=== PATIENT | male | born 1990 | race Caucasian/White ===

== ENCOUNTER 2016-08-18 07:16 | Emergency (ER) | payer SELFPAY ==
[~2016-08-18] VITALS: Ht 167.6 cm; Wt 70.0 kg
[2016-08-18 07:18] VITALS: BP 141/106; PULSE 103; RESP 16; TEMP 98.7; O2SAT 99
[2016-08-18] MEDS ORDERED: SODIUM CHLOR 0.9% 1000 ML INJ 1,000 ML IV SCH (07:29)
[2016-08-18] MEDS ORDERED: FAMOTIDINE 20 MG/2 ML VIAL IV PUSH ONE (07:30)
[2016-08-18] MEDS ORDERED: MORPHINE SULFATE 4 MG/ML INJ IV PUSH ONE ×2 (07:30→08:30)
[2016-08-18] MEDS ORDERED: SODIUM CHLORIDE 0.9% FLUSH 10 ML FLUSH IV FLUSH PRN (07:30)
[2016-08-18] MEDS ORDERED: ONDANSETRON HCL 4 MG/2 ML VIAL IVP ONE (07:30)
--- NOTE | 2016-08-18 07:40 | PD ---
HPI Chief Complaint: Abdominal Pain Time Seen by Provider: 07:29 Travel History International Travel<30 days: No Contact w/Intl Traveler<30days: No Traveled to known affect area: No History of Present Illness HPI The patient is a 26-year-old male who presents emergency department for abdominal pain. The patient is a 39 history of epigastric abdominal pain that radiates to the flanks bilaterally and is associated with nausea, vomiting , pain with eating. The patient also notes a few episodes of loose, watery, diarrhea, however, notes decreased oral intake of last several days. The patient does have a remote history of colitis 2 years ago as well as a history of elevated liver enzymes as a child. He denies any known history pancreatitis , cholelithiasis, biliary colic. The patient's last drink of alcohol was 6 days ago, he states he only has 1 or 2 beers when he drinks, denies any binge drinking. He does complain of subjective fevers, chills, and sweats. Symptoms are moderate without any alleviating or exacerbating factors. He denies any history of previous abdominal surgeries. He denies any associated dysuria, frequency, urgency, or hematuria. PFS Past Medical History Narrative Medical Elevated liver enzymes as a child, colitis Gastrointestinal Disorders: Yes (HX COLITIS) Tetanus Vaccination: Unknown Influenza Vaccination: No Past Surgical History Surgical History: No Previous Surgery Social History Alcohol Use: Yes (OCCAS) Tobacco Use: Yes (1/2 PPD) Substance Use: Yes ([facility]) Allergies-Medications (Allergen,Severity, Reaction): Coded Allergies: Benadryl (Verified Allergy, Severe, Psychosis, 08/18/16) Reported Meds & Prescriptions Reported Meds & Active Scripts Active Protonix (Pantoprazole Sodium) 40 Mg Tab 40 Mg PO DAILY Review of Systems Except as stated in HPI: all other systems reviewed are Neg General / Constitutional: Positive: Fever (subjective), Chills HENT: No: Headaches Respiratory: No: Shortness of Breath Gastrointestinal: Positive: Nausea, Vomiting, Diarrhea, Abdominal Pain Genitourinary: No: Urgency, Frequency, Dysuria, Hematuria Musculoskeletal: No: Myalgias Skin: No Rash Physical Exam Narrative GENERAL: Awake, alert, 26-year-old male who appears his stated age and appears in mild discomfort. SKIN: Focused skin assessment warm/dry. HEAD: Atraumatic. Normocephalic. EYES: Pupils equal and round. No scleral icterus. No injection or drainage. ENT: No nasal bleeding or discharge. Mucous membranes pink and moist. NECK: Trachea midline. No JVD. CARDIOVASCULAR: Regular, tachycardic with a heart rate of 100. RESPIRATORY: No accessory muscle use. Clear to auscultation. Breath sounds equal bilaterally. GASTROINTESTINAL: Abdomen soft, mild tenderness in epigastrium. No rebound tenderness. MUSCULOSKELETAL: No obvious deformities. No clubbing. No cyanosis. No edema. NEUROLOGICAL: Awake and alert. No obvious cranial nerve deficits. Motor grossly within normal limits. Normal speech. PSYCHIATRIC: Appropriate mood and affect; insight and judgment normal. Data Data Last Documented VS Vital Signs Date Time Temp Pulse Resp B/P Pulse Ox O2 Delivery O2 Flow Rate FiO2 08/18/16 08:43 82 16 146/85 99 Room Air 08/18/16 07:18 98.7 Orders Complete Blood Count With Diff (08/18/16 07:29) Comprehensive Metabolic Panel (08/18/16 07:29) Lipase (08/18/16 07:29) Urinalysis - C+S If Indicated (08/18/16 07:29) Ct Abd/Pel W Iv Contrast(Rout) (08/18/16 07:29) Iv Access Insert/Monitor (08/18/16 07:29) Ecg Monitoring (08/18/16 07:29) Oximetry (08/18/16 07:29) Ondansetron Inj (Zofran Inj) (08/18/16 07:30) Sodium Chlor 0.9% 1000 Ml Inj (Ns 1000 M (08/18/16 07:29) Sodium Chloride 0.9% Flush (Ns Flush) (08/18/16 07:30) Famotidine Inj (Pepcid Inj) (08/18/16 07:30) Morphine Inj (Morphine Inj) (08/18/16 08:00) Iohexol 350 Inj (Omnipaque 350 Inj) (08/18/16 07:59) Morphine Inj (Morphine Inj) (08/18/16 08:30) Al-Mag Hy-Si 40-40-4 Mg/Ml Liq (Mag-Al P (08/18/16 08:30) Lidocaine 2% Viscous (Xylocaine 2% Visco (08/18/16 08:30) Morphine Inj (Morphine Inj) (08/18/16 08:30) Labs Laboratory Tests Test 08/18/16 07:40 White Blood Count 11.1 TH/MM3 Red Blood Count 5.42 MIL/MM3 Hemoglobin 16.2 GM/DL Hematocrit 49.4 % Mean Corpuscular Volume 91.3 FL Mean Corpuscular Hemoglobin 30.0 PG Mean Corpuscular Hemoglobin 32.8 % Concent Red Cell Distribution Width 12.8 % Platelet Count 242 TH/MM3 Mean Platelet Volume 7.3 FL Neutrophils (%) (Auto) 71.9 % Lymphocytes (%) (Auto) 17.7 % Monocytes (%) (Auto) 8.5 % Eosinophils (%) (Auto) 1.4 % Basophils (%) (Auto) 0.5 % Neutrophils # (Auto) 7.9 TH/MM3 Lymphocytes # (Auto) 2.0 TH/MM3 Monocytes # (Auto) 0.9 TH/MM3 Eosinophils # (Auto) 0.2 TH/MM3 Basophils # (Auto) 0.1 TH/MM3 CBC Comment DIFF FINAL Differential Comment Urine Collection Type CLEAN CATCH Urine Color YELLOW Urine Turbidity CLEAR Urine pH 6.0 Urine Specific [place] 1.029 Urine Protein TRACE mg/dL Urine Glucose (UA) NEG mg/dL Urine Ketones 15 mg/dL Urine Occult Blood TRACE Urine Nitrite NEG Urine Bilirubin NEG Urine Leukocyte Esterase NEG Urine RBC 0-3 /hpf Urine WBC 0-2 /hpf Urine Squamous Epithelial 0-5 /hpf Cells Urine Mucus FEW /lpf Microscopic Urinalysis Comment CULT NOT INDICATED Urine Collection Time 07:40 Sodium Level 142 MEQ/L Potassium Level 4.2 MEQ/L Chloride Level 109 MEQ/L Carbon Dioxide Level 23.0 MEQ/L Anion Gap 10 MEQ/L Blood Urea Nitrogen 11 MG/DL Creatinine 0.99 MG/DL Estimat Glomerular Filtration 91 ML/MIN Rate Random Glucose 90 MG/DL Calcium Level 9.2 MG/DL Total Bilirubin 1.0 MG/DL Aspartate Amino Transf 55 U/L (AST/SGOT) Alanine Aminotransferase 45 U/L (ALT/SGPT) Alkaline Phosphatase 89 U/L Total Protein 8.4 GM/DL Albumin 4.6 GM/DL Lipase 117 U/L MDM Medical Decision Making Medical Screen Exam Complete: Yes Emergency Medical Condition: Yes Medical Record Reviewed: Yes Interpretation(s) Laboratory Tests Test 08/18/16 07:40 White Blood Count 11.1 TH/MM3 Red Blood Count 5.42 MIL/MM3 Hemoglobin 16.2 GM/DL Hematocrit 49.4 % Mean Corpuscular Volume 91.3 FL Mean Corpuscular Hemoglobin 30.0 PG Mean Corpuscular Hemoglobin 32.8 % Concent Red Cell Distribution Width 12.8 % Platelet Count 242 TH/MM3 Mean Platelet Volume 7.3 FL Neutrophils (%) (Auto) 71.9 % Lymphocytes (%) (Auto) 17.7 % Monocytes (%) (Auto) 8.5 % Eosinophils (%) (Auto) 1.4 % Basophils (%) (Auto) 0.5 % Neutrophils # (Auto) 7.9 TH/MM3 Lymphocytes # (Auto) 2.0 TH/MM3 Monocytes # (Auto) 0.9 TH/MM3 Eosinophils # (Auto) 0.2 TH/MM3 Basophils # (Auto) 0.1 TH/MM3 CBC Comment DIFF FINAL Differential Comment Urine Collection Type CLEAN CATCH Urine Color YELLOW Urine Turbidity CLEAR Urine pH 6.0 Urine Specific [place] 1.029 Urine Protein TRACE mg/dL Urine Glucose (UA) NEG mg/dL Urine Ketones 15 mg/dL Urine Occult Blood TRACE Urine Nitrite NEG Urine Bilirubin NEG Urine Leukocyte Esterase NEG Urine RBC 0-3 /hpf Urine WBC 0-2 /hpf Urine Squamous Epithelial 0-5 /hpf Cells Urine Mucus FEW /lpf Microscopic Urinalysis Comment CULT NOT INDICATED Urine Collection Time 07:40 Sodium Level 142 MEQ/L Potassium Level 4.2 MEQ/L Chloride Level 109 MEQ/L Carbon Dioxide Level 23.0 MEQ/L Anion Gap 10 MEQ/L Blood Urea Nitrogen 11 MG/DL Creatinine 0.99 MG/DL Estimat Glomerular Filtration 91 ML/MIN Rate Random Glucose 90 MG/DL Calcium Level 9.2 MG/DL Total Bilirubin 1.0 MG/DL Aspartate Amino Transf 55 U/L (AST/SGOT) Alkaline Phosphatase 89 U/L Total Protein 8.4 GM/DL Albumin 4.6 GM/DL Lipase 117 U/L CT of the abdomen and pelvis reveals a fatty liver and diverticulosis, lumbar scoliosis, otherwise unremarkable for any acute findings. Differential Diagnosis Differential diagnoses includes gastritis, peptic ulcer disease, pancreatitis, biliary colic, cholelithiasis, hydronephrosis, pyelonephritis, nephrolithiasis, perforated viscus, colitis, gastroenteritis. Narrative Course IV was established, labs are drawn and sent, and the patient was placed on cardiac telemetry monitoring and continuous pulse oximetry monitoring. The patient was electronic assembler group leader morphine, Zofran, and IV fluids. CT of the abdomen and pelvis with IV contrast was ordered. White count is minimally elevated 11.1, CMP is unremarkable except for AST of 55. Lipase is within normal limits. UA reveals a few ketones, otherwise unremarkable. CT of the abdomen and pelvis reveals a fatty liver and diverticulosis, no acute findings. The epigastric abdominal pain is most likely related to gastritis and/or peptic ulcer disease. The patient will be placed on a proton pump inhibitor and is advised to follow -up with gastroenterology if symptoms persist for outpatient endoscopy. The patient was reevaluated at 8:20 AM, his pain had improved to a 6/10, therefore, he was ordered a GI cocktail and another dose of morphine 4 mg intravenously. The patient will be provided a copy of his CT results and lab results at discharge. Diagnosis Primary Impression: Epigastric abdominal pain Patient Instructions: General Instructions Additional Instructions: Medications as directed. Please provide the patient copy of his CT results and lab results at discharge. Follow-up with gastroenterology on an outpatient basis. Return if symptoms worsen or progress. Med/Other Pt SpecificInfo: Prescription(s) given Scripts Pantoprazole (Protonix)40 Mg Tab40 Mg PO DAILY #30 TAB Ref 0 Prov:Bentley Garcia MD 08/18/16 Disposition: 01 DISCHARGE HOME Condition: Stable Bentley Garcia MD Aug 18, 2016 07:40
[2016-08-18 07:46] LABS: BLOOD, URINE TRACE (NEG); GLUCOSE,URINE NEG (NEG); KETONE, URINE 15 mg/dL (NEG); NITRITE,URINE NEG (NEG)
[2016-08-18 07:47] LABS: AUTOMATED NEUTROPHIL # 7.9 TH/MM3 (1.8-7.7); BASOPHIL # 0.1 TH/MM3 (0-0.2); BASOPHIL % 0.5 % (0.0-2.0); EOSINOPHIL # 0.2 TH/MM3 (0-0.4); EOSINOPHIL % 1.4 % (0.0-4.0); HEMATOCRIT 49.4 % (39.0-51.0); HEMO FLAGS DIFF FINAL; LYMPH % 17.7 % (9.0-44.0); MEAN CELL VOLUME 91.3 FL (80.0-100.0); MEAN CORPUSCULAR HGB CONC 32.8 % (32.0-36.0); MONO % 8.5 % (0.0-8.0); NEUT % 71.9 % (16.0-70.0); PLATELET COUNT 242 TH/MM3 (150-450); RED BLOOD COUNT 5.42 MIL/MM3 (4.50-5.90); RED CELL DISTRIBUTION WIDTH 12.8 % (11.6-17.2); WHITE BLOOD COUNT 11.1 TH/MM3 (4.0-11.0)
[2016-08-18 07:51] LABS: METHOD OF COLLECTION CLEAN CATCH; URINE COLOR YELLOW (YELLW/STRAW)
[2016-08-18 07:53] LABS: COMMENT (UR) CULT NOT INDICATED; CULTURE IF INDICATED CULT NOT INDICATED; MUCUS URINE FEW /lpf (OCC); RBC, URINE 0-3 /hpf (0-3); SQUAMOUS EPITHELIAL CELL URINE 0-5 /hpf (0-5); WBC, URINE 0-2 /hpf (0-5)
[2016-08-18] MEDS ORDERED: IOHEXOL 350 MG/ML 10 ML VIAL (for RAD DIAG) IV ONE (07:59)
[2016-08-18] MEDS ORDERED: MORPHINE SULFATE 8 MG/ML INJ IV PUSH ONE ×2 (08:00→08:30)
[2016-08-18 08:02] VITALS: BP 145/93; PULSE 92; RESP 16; O2SAT 99
[2016-08-18 08:03] VITALS: RESP 16; O2SAT 99
[2016-08-18 08:13] LABS: ALKALINE PHOSPHATASE 89 U/L (45-117); BLOOD UREA NITROGEN 11 MG/DL (7-18); GLOMERULAR FILTRATION RATE 91 ML/MIN (>89)
[2016-08-18 08:14] LABS: ANION GAP 10 MEQ/L (5-15); AST (GOT) 55 U/L (15-37); CHLORIDE 109 MEQ/L (98-107); POTASSIUM 4.2 MEQ/L (3.5-5.1); SODIUM (NA) 142 MEQ/L (136-145)
--- NOTE | 2016-08-18 08:14 | RADRPT ---
EXAM DATE/TIME: 08/18/2016 07:40 [facility] COMPARISON: No previous studies available for comparison. INDICATIONS : Epigastric pain, vomiting and diarrhea. IV CONTRAST: 100 cc Omnipaque 350 (iohexol) IV ORAL CONTRAST: No oral contrast ingested. RADIATION DOSE: 7.58 CTDIvol (mGy) MEDICAL HISTORY : None SURGICAL HISTORY : None. ENCOUNTER: Initial ACUITY: 4 - 6 days PAIN SCALE: 10/10 LOCATION: midline epigastric TECHNIQUE: Volumetric scanning of the abdomen and pelvis was performed. Using automated exposure control and ad justment of the mA and/or kV according to patient size, radiation dose was kept as low as reasonably achievable to obtain optimal diagnostic quality images. DICOM format image data is available electro nically for review and comparison. FINDINGS: LOWER LUNGS: The visualized lower lungs are clear. LIVER: The liver is enlarged and demonstrates diffuse fatty infiltration. No focal hepatic mass is noted. Th ere is no dilation of the biliary tree. No calcified gallstones. SPLEEN: Normal size without lesion. PANCREAS: Within normal limits. KIDNEYS: Normal in size and shape. There is no mass, stone or hydronephrosis. ADRENAL GLANDS: Within normal limits. VASCULAR: There is no aortic aneurysm. BOWEL/MESENTERY: Uncomplicated colonic diverticulosis is noted. No acute diverticulitis is noted. No acute appendiciti s is noted. ABDOMINAL WALL: Within normal limits. RETROPERITONEUM: There is no lymphadenopathy. BLADDER: No wall thickening or mass. REPRODUCTIVE: Within normal limits. INGUINAL: There is no lymphadenopathy or hernia. MUSCULOSKELETAL: Mild scoliosis of lumbar spine is noted. CONCLUSION: 1. Enlarged fatty liver. 2. Uncomplicated colonic diverticulosis. 3. Mild scoliosis of the lumbar spine. John Fletcher MD on August 18, 2016 at 8:08 Board Certified Radiologist. This report was verified electronically.
[2016-08-18 08:21] LABS: ALT (GPT) 45 U/L (12-78)
[2016-08-18] MEDS ORDERED: PROT40TA PO (08:21)
[2016-08-18] MEDS ORDERED: LIDOCAINE VISCOUS 2% SOLN 15 ML UDC PO ONE (08:30)
[2016-08-18] MEDS ORDERED: ALUMINUM/MAGNESIUM/SIMETH 30 ML CUP PO ONE (08:30)
[2016-08-18 08:43] VITALS: BP 146/85; PULSE 82; RESP 16; O2SAT 99
[2016-08-19] MEDS ORDERED: PRIL20TA2 PO (22:38)
== END 2016-08-18 09:20 | disposition home or self-care (01) ==
LOC: PHED 07:16
DX: R10.13 Epigastric pain (principal); R11.2 Nausea with vomiting, unspecified; R19.7 Diarrhea, unspecified
CPT/HCPCS: 74177; 80053; 81001; 83690; 85025; 96361; 96374; 96375; 99285; J2270; J2405; J7030; Q9967

== ENCOUNTER 2016-08-19 20:34 | Emergency (ER) | payer SELFPAY ==
[~2016-08-19] VITALS: Ht 165.1 cm; Wt 69.0 kg
[~2016-08-19 20:34] MED LIST: PROT40TA PO
[2016-08-19 20:42] VITALS: BP 149/100; PULSE 96; RESP 20; TEMP 98.7; O2SAT 99
[2016-08-19] MEDS ORDERED: SODIUM CHLOR 0.9% 1000 ML INJ 1,000 ML IV ONE (21:15)
[2016-08-19] MEDS ORDERED: PROCHLORPERAZINE INJ 10 MG/2 ML VIAL IV PUSH ONE (21:15)
[2016-08-19] MEDS ORDERED: PANTOPRAZOLE SODIUM 40 MG VIAL IV PUSH ONE (21:30)
--- NOTE | 2016-08-19 21:34 | PD ---
HPI . Epigastric pain Chief Complaint: GI Complaint Time Seen by Provider: 21:11 Travel History International Travel<30 days: No Contact w/Intl Traveler<30days: No Traveled to known affect area: No History of Present Illness HPI Patient presents complaining with persistent upper abdominal pain associated with nausea and vomiting. Patient reports a five-day history. He has had a fever associated with his. His epigastric pain is exacerbated by eating. No relieving factor. Pain is rated 10/10. This patient was seen here yesterday for same. He had a full workup done. Presumptive diagnosis was gastritis or peptic ulcer disease. He was discharged with a prescription for Protonix. Patient reports that he has been unable to fill the Protonix because of financial concerns. [facility] Past Medical History Gastrointestinal Disorders: Yes (HX COLITIS) Social History Alcohol Use: Yes (OCCAS) Tobacco Use: Yes (02/20 PPD) Substance Use: Yes ([facility] OCCAS) Allergies-Medications (Allergen,Severity, Reaction): Coded Allergies: Benadryl (Verified Allergy, Severe, Psychosis, 08/19/16) Histamine H2 Receptor Antagonist (Verified Allergy, Unknown, 08/19/16) Uncoded Allergies: ANTI-HISTAMINE (Adverse Reaction, Unknown, 08/19/16) Reported Meds & Prescriptions Reported Meds & Active Scripts Active Protonix (Pantoprazole Sodium) 40 Mg Tab 40 Mg PO DAILY Review of Systems Except as stated in HPI: all other systems reviewed are Neg General / Constitutional: Positive: Fever, Chills Gastrointestinal: Positive: Nausea, Vomiting, Abdominal Pain Genitourinary: No: Urgency, Frequency, Dysuria Physical Exam Narrative GENERAL: Patient is moaning continuously. SKIN: Warm and dry. HEAD: Atraumatic. Normocephalic. EYES: Pupils equal and round. Extraocular movements are intact. ENT: No nasal bleeding or discharge. Mucous membranes pink and moist. NECK: Trachea midline. Neck is supple. CARDIOVASCULAR: Regular rate and rhythm. Heart sounds are normal. RESPIRATORY: No accessory muscle use. Lungs are clear with full air movement throughout. GASTROINTESTINAL: Diffuse abdominal tenderness, worse in the epigastrium. Bowel sounds positive. MUSCULOSKELETAL: No obvious deformities. No edema. NEUROLOGICAL: Awake and alert. No obvious cranial nerve deficits. Motor grossly within normal limits. Normal speech. PSYCHIATRIC: Appropriate mood and affect; insight and judgment normal. Data Data Last Documented VS Vital Signs Date Time Temp Pulse Resp B/P Pulse Ox O2 Delivery O2 Flow Rate FiO2 08/19/16 20:42 98.7 96 20 149/100 99 Orders Sodium Chlor 0.9% 1000 Ml Inj (Ns 1000 M (08/19/16 21:15) Prochlorperazine Inj (Compazine Inj) (08/19/16 21:15) Complete Blood Count With Diff (08/19/16 21:27) Basic Metabolic Panel (Bmp) (08/19/16 21:27) Pantoprazole Inj (Protonix Inj) (08/19/16 21:30) Labs Laboratory Tests Test 08/19/16 21:30 White Blood Count 8.3 TH/MM3 Red Blood Count 5.12 MIL/MM3 Hemoglobin 15.5 GM/DL Hematocrit 45.1 % Mean Corpuscular Volume 88.2 FL Mean Corpuscular Hemoglobin 30.4 PG Mean Corpuscular Hemoglobin 34.5 % Concent Red Cell Distribution Width 11.9 % Platelet Count 231 TH/MM3 Mean Platelet Volume 7.3 FL Neutrophils (%) (Auto) 69.4 % Lymphocytes (%) (Auto) 18.8 % Monocytes (%) (Auto) 8.9 % Eosinophils (%) (Auto) 2.1 % Basophils (%) (Auto) 0.8 % Neutrophils # (Auto) 5.7 TH/MM3 Lymphocytes # (Auto) 1.6 TH/MM3 Monocytes # (Auto) 0.7 TH/MM3 Eosinophils # (Auto) 0.2 TH/MM3 Basophils # (Auto) 0.1 TH/MM3 CBC Comment DIFF FINAL Differential Comment Sodium Level 143 MEQ/L Potassium Level 4.0 MEQ/L Chloride Level 109 MEQ/L Carbon Dioxide Level 25.6 MEQ/L Anion Gap 8 MEQ/L Blood Urea Nitrogen 7 MG/DL Creatinine 0.90 MG/DL Estimat Glomerular Filtration 101 ML/MIN Rate Random Glucose 83 MG/DL Calcium Level 8.9 MG/DL MDM Medical Decision Making Medical Screen Exam Complete: Yes Emergency Medical Condition: Yes Medical Record Reviewed: Yes (patient was seen here yesterday for same. He had a CT of the abdomen which was essentially negative. Her grandson metabolic panel was also essentially normal. White blood count was 11.1.) Differential Diagnosis Differential diagnosis of abdominal pain includes but is not limited to gastritis, pancreatitis, hepatitis, gastroenteritis, gallbladder disease, constipation, urinary retention, UTI, peptic ulcer disease, diverticulitis or appendicitis Narrative Course Patient presents for continued epigastric pain with nausea and vomiting. He had a full workup done yesterday. I will repeat his CBC and a BMP. This patient does not act his stated age of 26. The nurses have any great difficulty starting his IV because of lack of cooperation. CBC & BMP Diagram 08/19/16 21:30 This patient has no evidence of infection or dehydration. The history, exam, diagnostic testing, and current condition do not suggest any significant pathology to warrant further testing, continued ED treatment, admission, or surgical evaluation at this point. The patient's condition is stable and appropriate for discharge. I will change his proton pump inhibitor from Protonix to Prilosec which should be significantly cheaper. Diagnosis Primary Impression: Epigastric abdominal pain Additional Impression: Vomiting Qualified Code: R11.2 - Non-intractable vomiting with nausea, unspecified vomiting type Med/Other Pt SpecificInfo: Prescription(s) given Scripts Omeprazole Magnesium (Prilosec)20 Mg Tab20 Mg PO DAILY PRN (epigastric pain) # 30 Prov:Dana Larkin MD 08/19/16 Disposition: DISCHARGE HOME Condition: Stable Dana Larkin MD Aug 19, 2016 21:34
[2016-08-19 21:50] LABS: AUTOMATED NEUTROPHIL # 5.7 TH/MM3 (1.8-7.7); BASOPHIL # 0.1 TH/MM3 (0-0.2); BASOPHIL % 0.8 % (0.0-2.0); EOSINOPHIL # 0.2 TH/MM3 (0-0.4); EOSINOPHIL % 2.1 % (0.0-4.0); HEMATOCRIT 45.1 % (39.0-51.0); HEMO FLAGS DIFF FINAL; LYMPH % 18.8 % (9.0-44.0); LYMPHOCYTE # 1.6 TH/MM3 (1.0-4.8); MEAN CELL VOLUME 88.2 FL (80.0-100.0); MEAN CORPUSCULAR HEMOGLOBIN 30.4 PG (27.0-34.0); MEAN CORPUSCULAR HGB CONC 34.5 % (32.0-36.0); MONO % 8.9 % (0.0-8.0); NEUT % 69.4 % (16.0-70.0); PLATELET COUNT 231 TH/MM3 (150-450); RED BLOOD COUNT 5.12 MIL/MM3 (4.50-5.90); RED CELL DISTRIBUTION WIDTH 11.9 % (11.6-17.2); WHITE BLOOD COUNT 8.3 TH/MM3 (4.0-11.0)
[2016-08-19 22:03] LABS: BICARBONATE 25.6 MEQ/L (21.0-32.0)
[2016-08-19] MEDS ORDERED: PRIL20TA2 PO (22:38)
[2016-08-19 22:51] VITALS: BP 141/72; TEMP 98.2
== END 2016-08-19 22:57 | disposition home or self-care (01) ==
LOC: PHED 20:34
DX: R10.13 Epigastric pain (principal); R11.2 Nausea with vomiting, unspecified; F17.210 Nicotine dependence, cigarettes, uncomplicated
CPT/HCPCS: 80048; 85025; 96361; 96374; 96375; 99284; C9113; J0780; J7030

== ENCOUNTER 2017-07-18 23:15 | Emergency (ER) | payer MEDICAID, OTHER ==
[~2017-07-18] VITALS: Ht 165.1 cm; Wt 69.0 kg
[~2017-07-18 23:15] MED LIST changes: +PRIL20TA2 PO; -PROT40TA PO
[2017-07-18 23:22] VITALS: BP 130/101; PULSE 120; RESP 16; TEMP 98.2; O2SAT 95
[2017-07-19 00:13] LABS: AUTOMATED NEUTROPHIL # 5.7 TH/MM3 (1.8-7.7); BASOPHIL % 0.6 % (0.0-2.0); EOSINOPHIL # 0.1 TH/MM3 (0-0.4); HEMATOCRIT 44.4 % (39.0-51.0); HEMOGLOBIN 15.8 GM/DL (13.0-17.0); LYMPH % 26.1 % (9.0-44.0); LYMPHOCYTE # 2.2 TH/MM3 (1.0-4.8); MEAN CELL VOLUME 89.9 FL (80.0-100.0); MEAN CORPUSCULAR HEMOGLOBIN 31.9 PG (27.0-34.0); MEAN CORPUSCULAR HGB CONC 35.5 % (32.0-36.0); MEAN PLATELET VOLUME 7.6 FL (7.0-11.0); MONO % 4.2 % (0.0-8.0); MONOCYTE # 0.4 TH/MM3 (0-0.9); NEUT % 68.1 % (16.0-70.0); PLATELET COUNT 192 TH/MM3 (150-450); RED BLOOD COUNT 4.94 MIL/MM3 (4.50-5.90); RED CELL DISTRIBUTION WIDTH 12.8 % (11.6-17.2); WHITE BLOOD COUNT 8.3 TH/MM3 (4.0-11.0)
[2017-07-19 00:26] LABS: ALBUMIN 4.8 GM/DL (3.4-5.0); ALT (GPT) 51 U/L (12-78); AST (GOT) 61 U/L (15-37); BICARBONATE 18.7 MEQ/L (21.0-32.0); BLOOD UREA NITROGEN 7 MG/DL (7-18); CALCIUM 8.8 MG/DL (8.5-10.1); CHLORIDE 108 MEQ/L (98-107); CREATININE 1.02 MG/DL (0.60-1.30); GLOMERULAR FILTRATION RATE 87 ML/MIN (>89); GLUCOSE,RANDOM 69 MG/DL (74-106); SODIUM (NA) 143 MEQ/L (136-145)
[2017-07-19 00:36] LABS: ACETAMINOPHEN LESS THAN 2.0 MCG/ML (10.0-30.0); ALKALINE PHOSPHATASE 85 U/L (45-117); TOTAL BILIRUBIN ADULT 0.3 MG/DL (0.2-1.0); TOTAL PROTEIN 8.3 GM/DL (6.4-8.2)
--- NOTE | 2017-07-19 00:53 | PD ---
HPI Chief Complaint: Psychiatric Symptoms Time Seen by Provider: 00:05 Travel History International Travel<30 days: No Contact w/Intl Traveler<30days: No Traveled to known affect area: No History of Present Illness HPI Patient is a 27-year-old male presenting to the emergency department for psychiatric evaluation under Pinedo act. Per the Pinedo act report patient wrote his girlfriend a note stating that he was then told a girlfriend he was going to kill himself. Patient reports that he wrote a problem to his midlevel provider who had been overbearing to them because they could not make it to [facility] because they have a 6-month-old child at home and it was hard to get there. He states that his girlfriend had paranoid schizophrenia and has not been taking her Geodon for the last 2 weeks and things got out of hand when he came home and she had already eaten dinner without him and did leave him any food and they started arguing and then he said what he said. Patient denies feeling suicidal. He denies any homicidal ideations or hallucinations. Patient denies any illicit drug use. He has no complaints of physical pain at this time. [facility] Past Medical History Diminished Hearing: No Gastrointestinal Disorders: Yes (HX COLITIS) GERD: Yes Tetanus Vaccination: Unknown Influenza Vaccination: No Past Surgical History Surgical History: No Previous Surgery Social History Alcohol Use: Yes (occasionally) Tobacco Use: Yes (1/2 PPD) Substance Use: No (quit smoking marijuana 3 weeks ago) Allergies-Medications (Allergen,Severity, Reaction): Coded Allergies: diphenhydramine (Unverified Allergy, Severe, Psychosis, 07/18/17) cimetidine (Unverified Allergy, Unknown, 07/18/17) famotidine (Unverified Allergy, Unknown, 07/18/17) ranitidine (Unverified Allergy, Unknown, 07/18/17) Uncoded Allergies: ANTI-HISTAMINE (Adverse Reaction, Unknown, 08/19/16) Reported Meds & Prescriptions Reported Meds & Active Scripts Active No Active Prescriptions or Reported Medications Review of Systems Except as stated in HPI: all other systems reviewed are Neg Psychiatric: Positive: Suicidal Ideations Physical Exam Narrative GENERAL: Well-developed, well-nourished, alert male. Presenting in no acute distress. SKIN: Warm and dry. HEAD: Atraumatic. Normocephalic. EYES: Pupils equal and round. No scleral icterus. No injection or drainage. ENT: No nasal bleeding or discharge. Mucous membranes pink and moist. NECK: Trachea midline. No JVD. CARDIOVASCULAR: Regular rate and rhythm. RESPIRATORY: No accessory muscle use. Clear to auscultation. Breath sounds equal bilaterally. GASTROINTESTINAL: Abdomen soft, non-tender, nondistended. Hepatic and splenic margins not palpable. MUSCULOSKELETAL: Extremities without clubbing, cyanosis, or edema. No obvious deformities. NEUROLOGICAL: Awake and alert. No obvious cranial nerve deficits. Motor grossly within normal limits. Five out of 5 muscle strength in the arms and legs. Normal speech. PSYCHIATRIC: Appropriate mood and affect; insight and judgment normal. Data Data Last Documented VS Vital Signs Date Time Temp Pulse Resp B/P (MAP) Pulse Ox O2 Delivery O2 Flow Rate FiO2 07/18/17 23:22 98.2 120 16 130/101 (111) 95 Orders Orders Complete Blood Count With Diff (07/18/17 23:53) Comprehensive Metabolic Panel (07/18/17 23:53) Psych Screen (07/18/17 23:53) Drug Screen, Random Urine (07/18/17 23:53) Alcohol (Ethanol) (07/18/17 23:53) Salicylates (Aspirin) (07/18/17 23:53) Tylenol (Acetaminophen) (07/18/17 23:53) Thyroid Stimulating Hormone (07/18/17 23:53) Labs Laboratory Tests Test 07/18/17 00:00 White Blood Count 8.3 TH/MM3 Red Blood Count 4.94 MIL/MM3 Hemoglobin 15.8 GM/DL Hematocrit 44.4 % Mean Corpuscular Volume 89.9 FL Mean Corpuscular Hemoglobin 31.9 PG Mean Corpuscular Hemoglobin Concent 35.5 % Red Cell Distribution Width 12.8 % Platelet Count 192 TH/MM3 Mean Platelet Volume 7.6 FL Neutrophils (%) (Auto) 68.1 % Lymphocytes (%) (Auto) 26.1 % Monocytes (%) (Auto) 4.2 % Eosinophils (%) (Auto) 1.0 % Basophils (%) (Auto) 0.6 % Neutrophils # (Auto) 5.7 TH/MM3 Lymphocytes # (Auto) 2.2 TH/MM3 Monocytes # (Auto) 0.4 TH/MM3 Eosinophils # (Auto) 0.1 TH/MM3 Basophils # (Auto) 0.0 TH/MM3 CBC Comment DIFF FINAL Differential Comment Blood Urea Nitrogen 7 MG/DL Creatinine 1.02 MG/DL Random Glucose 69 MG/DL Total Protein 8.3 GM/DL Albumin 4.8 GM/DL Calcium Level 8.8 MG/DL Alkaline Phosphatase 85 U/L Aspartate Amino Transf (AST/SGOT) 61 U/L Alanine Aminotransferase (ALT/SGPT) 51 U/L Total Bilirubin 0.3 MG/DL Sodium Level 143 MEQ/L Potassium Level 3.2 MEQ/L Chloride Level 108 MEQ/L Carbon Dioxide Level 18.7 MEQ/L Anion Gap 16 MEQ/L Estimat Glomerular Filtration Rate 87 ML/MIN Thyroid Stimulating Hormone 3rd Gen 1.130 uIU/ML Salicylates Level 4.1 MG/DL Urine Opiates Screen NEG Acetaminophen Level LESS THAN 2.0 MCG/ML Urine Barbiturates Screen NEG Urine Amphetamines Screen NEG Urine Benzodiazepines Screen POS Urine Cocaine Screen NEG Urine Cannabinoids Screen POS Ethyl Alcohol Level 23 MG/DL MDM Medical Decision Making Medical Screen Exam Complete: Yes Emergency Medical Condition: Yes Interpretation(s) Laboratory Tests Test 07/18/17 00:00 White Blood Count 8.3 TH/MM3 Red Blood Count 4.94 MIL/MM3 Hemoglobin 15.8 GM/DL Hematocrit 44.4 % Mean Corpuscular Volume 89.9 FL Mean Corpuscular Hemoglobin 31.9 PG Mean Corpuscular Hemoglobin Concent 35.5 % Red Cell Distribution Width 12.8 % Platelet Count 192 TH/MM3 Mean Platelet Volume 7.6 FL Neutrophils (%) (Auto) 68.1 % Lymphocytes (%) (Auto) 26.1 % Monocytes (%) (Auto) 4.2 % Eosinophils (%) (Auto) 1.0 % Basophils (%) (Auto) 0.6 % Neutrophils # (Auto) 5.7 TH/MM3 Lymphocytes # (Auto) 2.2 TH/MM3 Monocytes # (Auto) 0.4 TH/MM3 Eosinophils # (Auto) 0.1 TH/MM3 Basophils # (Auto) 0.0 TH/MM3 CBC Comment DIFF FINAL Differential Comment Blood Urea Nitrogen 7 MG/DL Creatinine 1.02 MG/DL Random Glucose 69 MG/DL Total Protein 8.3 GM/DL Albumin 4.8 GM/DL Calcium Level 8.8 MG/DL Alkaline Phosphatase 85 U/L Aspartate Amino Transf (AST/SGOT) 61 U/L Alanine Aminotransferase (ALT/SGPT) 51 U/L Total Bilirubin 0.3 MG/DL Sodium Level 143 MEQ/L Potassium Level 3.2 MEQ/L Chloride Level 108 MEQ/L Carbon Dioxide Level 18.7 MEQ/L Anion Gap 16 MEQ/L Estimat Glomerular Filtration Rate 87 ML/MIN Thyroid Stimulating Hormone 3rd Gen 1.130 uIU/ML Salicylates Level 4.1 MG/DL Urine Opiates Screen NEG Acetaminophen Level LESS THAN 2.0 MCG/ML Urine Barbiturates Screen NEG Urine Amphetamines Screen NEG Urine Benzodiazepines Screen POS Urine Cocaine Screen NEG Urine Cannabinoids Screen POS Ethyl Alcohol Level 23 MG/DL Vital Signs Date Time Temp Pulse Resp B/P (MAP) Pulse Ox O2 Delivery O2 Flow Rate FiO2 07/18/17 23:22 98.2 120 16 130/101 (111) 95 Differential Diagnosis Mood disorder versus substance abuse versus suicidal ideations versus metabolic abnormality versus other Narrative Course Patient is a 27-year-old male presenting for psychiatric evaluation under Pinedo act. Patient is well-appearing, cooperative. He had vital signs initially with a heart rate of 120. Patient was reassessed after he had calm down his heart rate has trended down. Mental health screening discussed with the patient. Psychiatric screen ordered. Labs reviewed, CBC with no acute findings , chemistry with a potassium of 3.2, TSH is normal, alcohol level is 23, urine drug screen is positive for benzodiazepines and marijuana. Patient is medically cleared for psychiatric evaluation. Oral potassium replacement has been ordered. Diagnosis Primary Impression: Medical clearance for psychiatric admission Scripts No Active Prescriptions or Reported Meds Condition: Stable Dyana Milner July 19, 2017 00:53
[2017-07-19] MEDS ORDERED: POTASSIUM CHLORIDE 10 MEQ CONTROLLED RELEASE TAB PO ONE (01:00)
[2017-07-19 01:09] VITALS: BP 124/60; PULSE 94; RESP 18
[2017-07-19 06:27] VITALS: BP 126/67; PULSE 73; RESP 18; TEMP 97.7; O2SAT 98
--- NOTE | 2017-07-19 10:23 | PD.PSY.CON ---
Provisional Diagnosis Admission Date Date of consultation 07/19/2017 Ace I. 1. Polysubstance abuse Ace II. Deferred History of Present Illness Service Psychiatry Consult Requested By Emergency department Reason for Consult Shahida act Primary Care Physician No Primary Care Physician [facility] Mr. Anne is a 27-year-old male with a reported history of hypomania who presents under a Pinedo act by law enforcement alleging that the patient handed his girlfriend a note saying that he was going to kill himself and then verbally threatened the same. Patient's urine toxicology was positive for benzodiazepines and cannabinoids and his alcohol level was slightly elevated at 23. Reviewing the electronic medical record, I see no previous psychiatric contact within our system. Patient seen and examined. Chart reviewed. Case discussed with nursing staff. No suicidality or homicidality noted while the patient has been under observation in the ED. On my examination this morning the patient is clinically sober. He denies making any sort of suicidal threats and denies writing any sort of suicide note. He notes that his girlfriend has paranoid schizophrenia and has been in the process of adjusting meds and so has been somewhat unstable of late. 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 He says that his girlfriend misinterpreted this poem. He denies any suicidal or homicidal ideation, intent or plan and contracts for safety. He says that he wants to live for his daughter, his family and his work. He is quite future oriented on exam. I can elicit no depressive or hypomanic/manic symptoms, and the patient describes his mood as happy. He denies any audiovisual hallucinations. I can elicit no delusional material. The remainder of the psychiatric ROS is negative. No acute physical complaints. Patient is requesting discharge from the ED this morning. Past psychiatric history: Patient reports a history of hypomania. He has gone to [facility] in the past. He is presently on no psychotropics. He denies any history of psychiatric admissions but says that he was Pinedo acted once because of hallucinating as a consequence of taking an antihistamine. I do note that antihistamine is listed as 1 of patient's allergies now. He denies any history of suicide attempts. Family history: Patient denies any family history of mental illness or suicide. Chemical dependency history: Patient reports that yesterday was the first time he had had any alcohol in over a month. He says that he last smoked cannabis 2- 3 weeks ago. He can provide no explanation for the benzodiazepine in his urine toxicology. Social history: Patient lives with his girlfriend. He has a 6-month-old daughter. He has his GED. 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 He denies any history. Denies any legal history. Denies any access to guns or firearms. He is a W[employer]. With the patient's permission, I have obtained collateral information from his mother Liz Montgomery at [phone]. Mother has no concerns about patient being a risk of harm to himself or others at this point. She notes the patient has no history of suicide attempts in the past. She suspects that presenting episode was related to alcohol use. She notes that the patient had been over at her house yesterday assisting her with some projects, and when he left she found half a fifth of liquor missing from a bottle she had bought for a libertarian. She notes that the patient cannot handle alcohol, even in small quantities. I have recommended that patient's mother make sure the home environment is secure of all potential means of harm to self or others including but not limited to guns, knives and medications out of an abundance of caution. Education provided to mother regarding Pinedo act, ex parte, and [place] act. Review of Systems Except as stated in HPI: all other systems reviewed are Neg Past Family Social History Coded Allergies: diphenhydramine (Unverified Allergy, Severe, Psychosis, 07/18/17) cimetidine (Unverified Allergy, Unknown, 07/18/17) famotidine (Unverified Allergy, Unknown, 07/18/17) ranitidine (Unverified Allergy, Unknown, 07/18/17) Uncoded Allergies: ANTI-HISTAMINE (Adverse Reaction, Unknown, 08/19/16) Past Medical History Patient denies any medical issues Discontinued Scripts Omeprazole Magnesium (Prilosec) 20 Mg Tab, 20 MG PO DAILY Y for epigastric pain , #30 Prov:Dana Larkin MD 08/19/16 No home medications reported Patient's Strengths (min. 2) Attending to basic needs. Verbally fluent. Physical Exam Physical exam completed by ED provider. On my examination today, the patient appears to be in no acute physical distress. No motor abnormalities noted. No signs of intoxication or withdrawal noted. Labs and vitals reviewed: Vital Signs Vital Signs Date Time Temp Pulse Resp B/P (MAP) Pulse Ox O2 Delivery O2 Flow Rate FiO2 07/19/17 06:27 97.7 73 18 126/67 (86) 98 I/O 07/19/17 07/19/17 07/20/17 08:00 16:00 00:00 Intake Total 480 ml Balance 480 ml Lab Results Laboratory Tests Test 07/18/17 00:00 White Blood Count 8.3 TH/MM3 Red Blood Count 4.94 MIL/MM3 Hemoglobin 15.8 GM/DL Hematocrit 44.4 % Mean Corpuscular Volume 89.9 FL Mean Corpuscular Hemoglobin 31.9 PG Mean Corpuscular Hemoglobin Concent 35.5 % Red Cell Distribution Width 12.8 % Platelet Count 192 TH/MM3 Mean Platelet Volume 7.6 FL Neutrophils (%) (Auto) 68.1 % Lymphocytes (%) (Auto) 26.1 % Monocytes (%) (Auto) 4.2 % Eosinophils (%) (Auto) 1.0 % Basophils (%) (Auto) 0.6 % Neutrophils # (Auto) 5.7 TH/MM3 Lymphocytes # (Auto) 2.2 TH/MM3 Monocytes # (Auto) 0.4 TH/MM3 Eosinophils # (Auto) 0.1 TH/MM3 Basophils # (Auto) 0.0 TH/MM3 CBC Comment DIFF FINAL Differential Comment Blood Urea Nitrogen 7 MG/DL Creatinine 1.02 MG/DL Random Glucose 69 MG/DL Total Protein 8.3 GM/DL Albumin 4.8 GM/DL Calcium Level 8.8 MG/DL Alkaline Phosphatase 85 U/L Aspartate Amino Transf (AST/SGOT) 61 U/L Alanine Aminotransferase (ALT/SGPT) 51 U/L Total Bilirubin 0.3 MG/DL Sodium Level 143 MEQ/L Potassium Level 3.2 MEQ/L Chloride Level 108 MEQ/L Carbon Dioxide Level 18.7 MEQ/L Anion Gap 16 MEQ/L Estimat Glomerular Filtration Rate 87 ML/MIN Thyroid Stimulating Hormone 3rd Gen 1.130 uIU/ML Salicylates Level 4.1 MG/DL Urine Opiates Screen NEG Acetaminophen Level LESS THAN 2.0 MCG/ML Urine Barbiturates Screen NEG Urine Amphetamines Screen NEG Urine Benzodiazepines Screen POS Urine Cocaine Screen NEG Urine Cannabinoids Screen POS Ethyl Alcohol Level 23 MG/DL Mental Status Examination Appearance: Appropriate Consciousness: Alert Orientation: x4 Motor Activity: Other (No motor abnormalities noted) Speech: Unremarkable Language: Adequate Fund of Knowledge: Adequate Attention and Concentration: Adequate Memory: Unremarkable (Grossly intact on clinical exam) Mood: Appropriate Affect: Appropriate Thought Process & Associations: Intact Thought Content: Appropriate Hallucination Type: None Delusion Type: None Suicidal Ideation: No Suicidal Plan: No Suicidal Intention: No Homicidal Ideation: No Homicidal Plan: No Homicidal Intention: No Mental Status Exam Remarks Insight and judgment are perhaps fair Assessment & Plan Problem List: (1) Polysubstance abuse ICD Codes: F19.10 - Other psychoactive substance abuse, uncomplicated Assessment & Plan 27-year-old male with psychiatric history as detailed above who presents under Pinedo act. On my examination today, patient is clinically sober. He denies any suicidal or homicidal ideation. He contracts for safety. There is no evidence of unstable mental illness as defined under the Pinedo act in this patient at this time. He appears to be attending to his basic needs. I have obtained reassuring collateral information from the patient's mother. Synthesizing this information and based on the available evidence, I agriculture teacher that the patient does not meet the Pinedo act criteria. I have lifted the Pinedo act. I have recommended outpatient mental health follow-up. Patient should also seek chemical dependency evaluation and treatment. Nurse to provide the appropriate referrals. I have counseled the patient regarding warning signs for need to return to the psychiatric emergency room as part of a general safety plan. Patient is otherwise psychiatrically clear for discharge from the ED. Thank you very much for this consultation. Jorge Pittman MD July 19, 2017 10:23
--- NOTE | 2017-07-19 10:31 | PD ---
Physical Exam Date Seen by Provider: July 19, 2017 Time Seen by Provider: 10:30 Data Data Last Documented VS Vital Signs Date Time Temp Pulse Resp B/P (MAP) Pulse Ox O2 Delivery O2 Flow Rate FiO2 07/19/17 06:27 97.7 73 18 126/67 (86) 98 Orders Orders Complete Blood Count With Diff (07/18/17 23:53) Comprehensive Metabolic Panel (07/18/17 23:53) Psych Screen (07/18/17 23:53) Drug Screen, Random Urine (07/18/17 23:53) Alcohol (Ethanol) (07/18/17 23:53) Salicylates (Aspirin) (07/18/17 23:53) Tylenol (Acetaminophen) (07/18/17 23:53) Thyroid Stimulating Hormone (07/18/17 23:53) Potassium Chloride (Kcl) (07/19/17 01:00) Diet Regular Basic (07/19/17 Breakfast) Diet Regular Basic (07/19/17 Lunch) Ed Discharge Order (07/19/17 10:34) Labs Laboratory Tests Test 07/18/17 00:00 White Blood Count 8.3 TH/MM3 Red Blood Count 4.94 MIL/MM3 Hemoglobin 15.8 GM/DL Hematocrit 44.4 % Mean Corpuscular Volume 89.9 FL Mean Corpuscular Hemoglobin 31.9 PG Mean Corpuscular Hemoglobin Concent 35.5 % Red Cell Distribution Width 12.8 % Platelet Count 192 TH/MM3 Mean Platelet Volume 7.6 FL Neutrophils (%) (Auto) 68.1 % Lymphocytes (%) (Auto) 26.1 % Monocytes (%) (Auto) 4.2 % Eosinophils (%) (Auto) 1.0 % Basophils (%) (Auto) 0.6 % Neutrophils # (Auto) 5.7 TH/MM3 Lymphocytes # (Auto) 2.2 TH/MM3 Monocytes # (Auto) 0.4 TH/MM3 Eosinophils # (Auto) 0.1 TH/MM3 Basophils # (Auto) 0.0 TH/MM3 CBC Comment DIFF FINAL Differential Comment Blood Urea Nitrogen 7 MG/DL Creatinine 1.02 MG/DL Random Glucose 69 MG/DL Total Protein 8.3 GM/DL Albumin 4.8 GM/DL Calcium Level 8.8 MG/DL Alkaline Phosphatase 85 U/L Aspartate Amino Transf (AST/SGOT) 61 U/L Alanine Aminotransferase (ALT/SGPT) 51 U/L Total Bilirubin 0.3 MG/DL Sodium Level 143 MEQ/L Potassium Level 3.2 MEQ/L Chloride Level 108 MEQ/L Carbon Dioxide Level 18.7 MEQ/L Anion Gap 16 MEQ/L Estimat Glomerular Filtration Rate 87 ML/MIN Thyroid Stimulating Hormone 3rd Gen 1.130 uIU/ML Salicylates Level 4.1 MG/DL Urine Opiates Screen NEG Acetaminophen Level LESS THAN 2.0 MCG/ML Urine Barbiturates Screen NEG Urine Amphetamines Screen NEG Urine Benzodiazepines Screen POS Urine Cocaine Screen NEG Urine Cannabinoids Screen POS Ethyl Alcohol Level 23 MG/DL MDM Supervised Visit with [facility]: No Narrative Course 26 YO M brought to the ED under BA for psychiatric evaluation. He was initially seen by EDITA Holly and medically cleared. He was then evaluated by Dr. Pittman and the BA was lifted. Plan is for the patient to follow up at [facility]. The patient is stable and discharged home. Diagnosis Primary Impression: Medical clearance for psychiatric admission Additional Impression: Adjustment reaction Qualified Codes: F43.20 - Adjustment disorder, unspecified Referrals: [facility] Additional Instruction: Follow up with [facility] as discussed with Dr. Dos Santos. Resume at home medications as previously prescribed. Return to the ED for any urgent or emergent medical condition. Scripts No Active Prescriptions or Reported Meds Disposition: 01 DISCHARGE HOME Condition: Stable Tiffany Cespedes July 19, 2017 10:31
== END 2017-07-19 14:34 | disposition home or self-care (01) ==
LOC: NEPJ 23:15
DX: F43.20 Adjustment disorder, unspecified (principal); F19.10 Other psychoactive substance abuse, uncomplicated; F17.200 Nicotine dependence, unspecified, uncomplicated; Z88.8 Allergy status to other drugs, medicaments and biological substances
CPT/HCPCS: 80053; 80307; 84443; 85025; 99284

== ENCOUNTER 2018-04-05 10:22 | Inpatient (IN) ==
[2018-04-05 11:04] LABS: Baso % (Auto) 0.6 % (0.0-2.0); Eos # (Auto) 0.1 th/mm3 (0.0-0.4); Eos % (Auto) 1.3 % (0.0-4.0); Hematocrit 46.1 % (39.0-51.0); Hemoglobin 16.2 gm/dL (13.0-17.0); Lymph # (Auto) 1.7 th/mm3 (1.0-4.8); Mean Corpuscular Hemoglobin 32.8 pg (27.0-34.0); Mean Corpuscular Volume 93.8 fL (80.0-100.0); Mean Platelet Volume 7.3 fL (7.0-11.0); Mono # (Auto) 0.5 th/mm3 (0.0-0.9); Neut # (Auto) 5.5 th/mm3 (1.8-7.7); Neut % (Auto) 70.1 % (16.0-70.0); Platelet Count 232 th/mm3 (150-450); Red Blood Count 4.92 mil/mm3 (4.50-5.90); Red Cell Distribution Width 12.8 % (11.6-17.2); White Blood Count 7.8 th/mm3 (4.0-11.0)
[2018-04-05] MEDS ORDERED: ALPRAZolam 0.5 MG Tablet PO ONE (11:05)
--- NOTE | 2018-04-05 11:09 | ED ---
HPI General Chief Complaint: Psychiatric Symptoms Stated Complaint: Psych Eval/[facility] Time Seen by Provider: 04/05/18 10:53 Source: patient and police ([employer] act) Mode of arrival: other (police) Limitations: no limitations History of Present Illness HPI Narrative: Patient is a 27-year-old male presenting to the emergency department under [facility] for psychiatric evaluation. Patient reports he been off of his psychiatric medications for about 1 year. He states that he feels hopeless, he wants to hurt himself. He was reporting visual and auditory hallucinations. He states that he cannot tell if what he is seeing and hearing is real. He reports that his mind is racing. He denies any illicit drug use, he states he did pot 1 month ago. He has been clean of alcohol for the last 9 months but he does smoke tobacco products. He states that his medical history is significant for hypermania. He reports that he has been on Seroquel, risperidone, trazodone through [facility] in the past. Patient is tearful , he has no physical complaints at this time. He denies any homicidal ideations. He does report that he feels suicidal. MD complaint: Reports suicidal ideation and feels depressed Onset (ago): month(s) Duration: getting worse History of same: Yes Relieving factors: medication Context: Reports not taking psychiatric medications Associated psychiatric symptoms: Reports depression, suicidal ideation, racing thoughts, auditory hallucinations and visual hallucinations Associated symptoms: Reports denies other symptoms Treatments prior to arrival: Reports none If self harm: admits thoughts of self harm Related Data Home Medications Medication Instructions Recorded Confirmed No Known Home Medications 04/05/18 04/05/18 Allergies Allergy/AdvReac Type Severity Reaction Status Date / Time diphenhydramine Allergy Severe Psychosis Unverified 07/18/17 23:21 cimetidine Allergy Unknown Unverified 07/18/17 23:21 famotidine Allergy Unknown Unverified 07/18/17 23:21 ranitidine Allergy Unknown Unverified 07/18/17 23:21 ANTI-HISTAMINE AdvReac Unknown Uncoded 08/19/16 20:50 Review of Systems ROS: all other systems reviewed are negative [facility] Medical History Medical History History of camille (Acute) Patient denies medical problems (Acute) Surgical History Surgical History No history of previous surgery (Acute) Social History Social History Substance History: Past History Second Hand Smoke Exposure: Yes Smoking Status: Current every day smoker Tobacco Type: Cigarettes How Often Do You Have a Drink Containing Alcohol: Never Recent Travel in [facility] within the Last 8 Weeks: No Recent Out of Country Travel within the Last 8 Weeks: No Substance Abuse Detail Alcohol: Substance Use Status: Early Remission Immunization History Tetanus Immunization: >5 Years Exam Narrative Exam Narrative: GENERAL: Well-developed, well-nourished, alert male. Appears tearful and anxious, in no acute distress. SKIN: Focused skin assessment warm/dry. HEAD: Atraumatic. Normocephalic. EYES: Pupils equal and round. No scleral icterus. No injection or drainage. ENT: No nasal bleeding or discharge. Mucous membranes pink and moist. NECK: Trachea midline. No JVD. CARDIOVASCULAR: Regular rate and rhythm. No murmur appreciated. RESPIRATORY: No accessory muscle use. Clear to auscultation. Breath sounds equal bilaterally. GASTROINTESTINAL: Abdomen soft, non-tender, nondistended. Hepatic and splenic margins not palpable. MUSCULOSKELETAL: No obvious deformities. No clubbing. No cyanosis. No edema. NEUROLOGICAL: Awake and alert. No obvious cranial nerve deficits. Motor grossly within normal limits. Normal speech. PSYCHIATRIC: Depressed mood and anxious affect; insight and judgment normal. Course Initial Documented Vital Signs Temperature 98.1 F 04/05/18 10:33 Pulse Rate 89 04/05/18 10:33 Respiratory Rate 18 04/05/18 10:33 Blood Pressure 176/92 H 04/05/18 10:33 Pulse Oximetry 99 04/05/18 10:33 Last Documented Vital Signs Temperature 98.1 F 04/05/18 10:37 Pulse Rate 86 04/05/18 11:10 Respiratory Rate 18 04/05/18 11:10 Blood Pressure 157/93 H 04/05/18 11:10 Pulse Oximetry 99 04/05/18 11:10 Medical Decision Making MDM Narrative Medical decision making narrative: Patient is a 27-year-old male presenting under [place] act for psychiatric evaluation. Patient is tearful and anxious on arrival. Xanax 0.5 mg p.o. x1 dose ordered. Mental health screening discussed with the patient. Psychiatric screen ordered. CBC and chemistry with no acute findings, urine drug screen is positive for marijuana, alcohol level is less than 3. At this time patient is medically cleared for psychiatric evaluation. Medical Screen Exam Complete: Yes Emergency Medical Condition: Yes Differential Diagnosis Differential Diagnosis: Mood disorder versus psychosis versus metabolic abnormality versus noncompliance versus other Medical Records Medical records reviewed: Yes I reviewed the patient's medical records. Lab Data Lab results reviewed: Yes I reviewed the patient's lab results. Result diagrams: 04/05/18 10:30 04/05/18 10:30 Lab Results 04/05/18 04/05/18 04/05/18 Range/Units 10:30 10:30 11:56 WBC 7.8 (4.0-11.0) th/mm3 RBC 4.92 (4.50-5.90) mil/mm3 Hgb 16.2 (13.0-17.0) gm/dL Hct 46.1 (39.0-51.0) % MCV 93.8 (80.0-100.0) fL MCH 32.8 (27.0-34.0) pg MCHC 35.0 (32.0-36.0) % RDW 12.8 (11.6-17.2) % Plt Count 232 (150-450) th/mm3 MPV 7.3 (7.0-11.0) fL Neut % (Auto) 70.1 H (16.0-70.0) % Lymph % (Auto) 22.0 (9.0-44.0) % [place] % (Auto) 6.0 (0.0-8.0) % Eos % (Auto) 1.3 (0.0-4.0) % Baso % (Auto) 0.6 (0.0-2.0) % Neut # (Auto) 5.5 (1.8-7.7) th/mm3 Lymph # (Auto) 1.7 (1.0-4.8) th/mm3 [place] # (Auto) 0.5 (0.0-0.9) th/mm3 Eos # (Auto) 0.1 (0.0-0.4) th/mm3 Baso # (Auto) 0.0 (0.0-0.2) th/mm3 WBC Differential . Differential Comment Auto diff final Sodium 140 (136-145) meq/L Potassium 3.9 (3.5-5.1) meq/L Chloride 109 H (98-107) meq/L Carbon Dioxide 23.6 (21.0-32.0) meq/L Anion Gap 7 (5-15) meq/L BUN 14 (7-18) mg/dL Creatinine 0.96 (0.60-1.30) mg/dL Estimated GFR Greater than 89 (>89) mL/min Random Glucose 86 (74-106) mg/dL Calcium 9.1 (8.5-10.1) mg/dL Magnesium 2.4 (1.5-2.5) mg/dL Total Bilirubin 0.3 (0.2-1.0) mg/dL AST 57 H (15-37) U/L ALT 53 (12-78) U/L Alkaline Phosphatase 117 (45-117) U/L Total Protein 8.0 (6.4-8.2) g/dL Albumin 4.4 (3.4-5.0) g/dL TSH 0.484 (0.358-3.740) uIU/mL Urine Opiates Screen Neg (Neg) Ur Barbiturates Screen Neg (Neg) Ur Amphetamines Screen Neg (Neg) U Benzodiazepines Scrn Neg (Neg) Urine Cocaine Screen Neg (Neg) U Cannabinoids Screen Pos H (Neg) Serum Alcohol Less than 3 (0-5) mg/dL Discharge Plan Discharge Disposition Patient Disposition: Sign Out(ED Internal Use Only) Discharge Condition Condition: Stable Discharge Details Diagnosis: Medical clearance for psychiatric admission Physicians Team ED Provider: Dillon Soriano ED Midlevel Provider: Dyana Milner Primary Care Provider: Primary Care Meeta Kim Rxs /Orders / Referrals /Forms Prescriptions: No Action No Known Home Medications RF: 0 Discharge Interventions Interventions: Vital Signs Last Done: 04/05/18 11:10 Status ED Status: Medically Cleared
[2018-04-05 11:23] LABS: Albumin 4.4 g/dL (3.4-5.0); Anion Gap 7 meq/L (5-15); Aspartate Aminotransferase 57 U/L (15-37); Blood Urea Nitrogen 14 mg/dL (7-18); Calcium 9.1 mg/dL (8.5-10.1); Carbon Dioxide 23.6 meq/L (21.0-32.0); Chloride 109 meq/L (98-107); Glomerular Filtration Rate Greater Than 89 mL/min (>89); Glucose,Random 86 mg/dL (74-106); Magnesium 2.4 mg/dL (1.5-2.5); Potassium 3.9 meq/L (3.5-5.1); Sodium 140 meq/L (136-145)
[2018-04-05 11:25] LABS: Alanine Aminotransferase 53 U/L (12-78)
[2018-04-05 11:34] LABS: Alkaline Phosphatase 117 U/L (45-117); Thyroid Stimulating Hormone 0.484 uIU/mL (0.358-3.740)
[2018-04-05 13:31] LABS: Amphetamine Screen,Urine Neg (Neg); Barbiturate Screen,Urine Neg (Neg); Cannabinoid Screen,Urine Pos (Neg); Cocaine Screen,Urine Neg (Neg)
[2018-04-05 13:54] LABS: Opiate Screen,Urine Neg (Neg)
--- NOTE | 2018-04-05 18:17 | ED ---
HPI - Psych - General Time Seen by Psych Provider: 17:45 Source: patient, police ([place] act) Mode of arrival: other (police) Limitations: no limitations - History of Present Illness MD complaint: suicidal ideation, feels depressed Onset (ago): month(s) Duration: getting worse History of same: Yes Relieving factors: none, medication Exacerbating factors: other Context: not taking psychiatric medications Associated psychiatric symptoms: depression, suicidal ideation, racing thoughts , auditory hallucinations Associated symptoms: denies other symptoms Treatments prior to arrival: none, placed on mental health hold If self harm: admits thoughts of self harm - General Chief Complaint: Psychiatric Symptoms Stated Complaint: Psych Eval/[facility]D Time Seen by Provider: 04/05/18 10:53 - History of Present Illness HPI Narrative: History of Present Illness HPI Narrative:Mr. Anne is a 27-year-old , single male, lives with his girlfriend and his 1-1/2-year-old daughter, unemployed, with a reported history of hypomania, who presents under [place] act initiated by law enforcement and dated 04/05/2018 at 09 44. The report alleges that the patient has been off his medications for 1 year and feels overwhelmed and is unable to sleep. He has stated that if he does not receive help he is not sure what he will do to himself and that without treatment he will hurt himself. Patient's urine toxicology is positive for cannabinoids. Reviewing the electronic medical record, I see that he was seen and evaluated in June 2017 after he presented under a [place] act for suicidal ideation. During that visit he was released to outpatient care at [facility]. Patient is seen and examined. Chart is reviewed. Case discussed with nursing staff. No suicidality or homicidality noted while the patient has been under observation in the ED. On my examination the patient is alert and oriented. He tells me that he has been off psychiatric medications for the past 1 year because it was difficult for him to get a ride to [facility]. He reports that he did fairly well until approximately 3 months ago when he began to hear things, he began to have thoughts of hurting himself, racing thoughts, decreased concentration, irritability with episodes of yelling and no physical violence, not sleeping well and at times going for 2-3 days without sleep, unable to stop his thoughts, decreased appetite with reporting that at times he goes 2-3 days without eating with no noticeable weight loss. He denies current suicidal plan although continues to endorse thoughts of wanting to hurt himself. He comes to the hospital today at the urging of his girlfriend who had been away for the last 3 months and returned to the home a couple of weeks ago. Past psychiatric history. Patient reports a history of hypomania. He has received outpatient care at [facility] in the past and that he has been prescribed Seroquel, Risperdal, trazodone in the past. He is presently on no psychotropics. He states that he has one previous psychiatric hospitalization in [place] approximately 4-1/2 years ago. No previous suicide attempts are reported. He also reports that he has been placed under [place] act in the past because of hallucinating as a consequence of taking an antihistamine. Past psychiatric history: Patient reports a history of hypomania. He has gone to [facility] in the past. He is presently on no psychotropics. He denies any history of psychiatric admissions but says that he was [place] acted once because of hallucinating as a consequence of taking an antihistamine. I do note that antihistamine is listed as 1 of patient's allergies now. He denies any history of suicide attempts. Family history: Patient denies any family history of suicide. Does state that he has a brother that has psychiatric issues and unknown diagnoses Chemical dependency history: Patient reports that he has a remote history of substance abuse as a teenager including overusing cold medicine, inhalants, free on, and synthetic marijuana. His last alcohol drink was approximately 9 months ago. He continues to use cannabis but states not on a daily basis. Social history: Patient lives with his girlfriend for the past 6 years. He has a 1-1/2-year-old daughter. He has his GED. Unemployed. 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 He is currently on probation for reckless driving charge 10 months ago. Denies any access to guns or firearms. He is a Jewish. (Keila Zarco) - Related Data Home Medications Medication Instructions Recorded Confirmed No Known Home Medications 04/05/18 04/05/18 Allergies Allergy/AdvReac Type Severity Reaction Status Date / Time diphenhydramine Allergy Severe Psychosis Unverified 07/18/17 23:21 cimetidine Allergy Unknown Unverified 07/18/17 23:21 famotidine Allergy Unknown Unverified 07/18/17 23:21 ranitidine Allergy Unknown Unverified 07/18/17 23:21 ANTI-HISTAMINE AdvReac Unknown Uncoded 08/19/16 20:50 PMFSH - History History Provided By: Patient, Medical Record - Medical History Medical History: Medical History (Last Reviewed 04/05/18 @ 11:08 by EDITA Holly) Patient denies medical problems History of camille - Surgical History Surgical History: Surgical History (Last Reviewed 04/05/18 @ 11:08 by EDITA Holly) No history of previous surgery - Social History I have reviewed the patient's Social History: Yes - Tobacco History Second Hand Smoke Exposure: Yes Tobacco Use In Past 30 Days: Yes Smoking Status: Current every day smoker Tobacco Type: Cigarettes - Alcohol History How Often Do You Have a Drink Containing Alcohol: Never - Substance Use History Substance History: Past History - Substance Use Type Alcohol Status: Early Remission - Travel History Recent Travel in the [facility] Within the Last 8 Weeks: No Recent Travel Out of the Country Within the Last 8 Weeks: No - Immunization History Tetanus Immunization: >5 Years Psychiatric History - Psychiatric History Psychiatric Treatment History: History of Psychiatric Treatment History of Inpatient Treatment: Yes Firearms in Home: No - Psychiatric History Reports that he has one previous psychiatric hospitalization approximately 4-1/ 2 years ago in [place]. Currently not in treatment but has received treatment from [facility] in the past. (Keila Zarco) - Legal History On probation for reckless driving. (Keila Zarco) - Family Psychiatric History Brother with reported psychiatric illness. (Keila Zarco) Physical Exam - General Limitations: no limitations Mental Status Examination Appearance: Disheveled Consciousness: Alert Orientation: x4 Motor Activity: Normal gait Speech: Unremarkable Language: Adequate Fund of Knowledge: Adequate Attention and Concentration: Adequate Memory: Unremarkable Mood: Sad Affect: Other (tearful) Thought Process & Associations: Intact, Logical, Goal directed Thought Content: Appropriate Hallucination Type: None Delusion Type: None Suicidal Ideation: Yes Suicidal Plan: No Suicidal Intention: No Homicidal Ideation: No Homicidal Plan: No Homicidal Intention: No Insight: Adequate Judgment: Adequate Initial Documented Vital Signs Temperature 98.1 F 04/05/18 10:33 Pulse Rate 89 04/05/18 10:33 Respiratory Rate 18 04/05/18 10:33 Blood Pressure 176/92 H 04/05/18 10:33 Pulse Oximetry 99 04/05/18 10:33 Last Documented Vital Signs Temperature 98.1 F 04/05/18 10:37 Pulse Rate 86 04/05/18 11:10 Respiratory Rate 18 04/05/18 11:10 Blood Pressure 157/93 H 04/05/18 11:10 Pulse Oximetry 99 04/05/18 11:10 MDM - Psych - Diagnosis (1) Depressive disorder Code(s): F32.9 - Major depressive disorder, single episode, unspecified Status : Acute - Lab Data Result diagrams: 04/05/18 10:30 04/05/18 10:30 - [facility] Narrative Medical decision making narrative: At this time the patient continues to endorse multiple psychiatric symptoms including auditory hallucinations, decreased concentration, irritability, inability to function, not sleeping well, not eating well, and suicidal ideation with no reported plan. Patient states that he last took medications approximately 1 year ago 1 year ago. The patient he meets criteria for inpatient psychiatric treatment for further evaluation, stabilization, and safety. (Keila Zarco) - Lab Data Lab Results 04/05/18 04/05/18 04/05/18 Range/Units 10:30 10:30 11:56 WBC 7.8 (4.0-11.0) th/mm3 RBC 4.92 (4.50-5.90) mil/mm3 Hgb 16.2 (13.0-17.0) gm/dL Hct 46.1 (39.0-51.0) % MCV 93.8 (80.0-100.0) fL MCH 32.8 (27.0-34.0) pg MCHC 35.0 (32.0-36.0) % RDW 12.8 (11.6-17.2) % Plt Count 232 (150-450) th/mm3 MPV 7.3 (7.0-11.0) fL Neut % (Auto) 70.1 H (16.0-70.0) % Lymph % (Auto) 22.0 (9.0-44.0) % [place] % (Auto) 6.0 (0.0-8.0) % Eos % (Auto) 1.3 (0.0-4.0) % Baso % (Auto) 0.6 (0.0-2.0) % Neut # (Auto) 5.5 (1.8-7.7) th/mm3 Lymph # (Auto) 1.7 (1.0-4.8) th/mm3 [place] # (Auto) 0.5 (0.0-0.9) th/mm3 Eos # (Auto) 0.1 (0.0-0.4) th/mm3 Baso # (Auto) 0.0 (0.0-0.2) th/mm3 WBC Differential . Differential Comment Auto diff final Sodium 140 (136-145) meq/L Potassium 3.9 (3.5-5.1) meq/L Chloride 109 H (98-107) meq/L Carbon Dioxide 23.6 (21.0-32.0) meq/L Anion Gap 7 (5-15) meq/L BUN 14 (7-18) mg/dL Creatinine 0.96 (0.60-1.30) mg/dL Estimated GFR Greater than 89 (>89) mL/min Random Glucose 86 (74-106) mg/dL Calcium 9.1 (8.5-10.1) mg/dL Magnesium 2.4 (1.5-2.5) mg/dL Total Bilirubin 0.3 (0.2-1.0) mg/dL AST 57 H (15-37) U/L ALT 53 (12-78) U/L Alkaline Phosphatase 117 (45-117) U/L Total Protein 8.0 (6.4-8.2) g/dL Albumin 4.4 (3.4-5.0) g/dL TSH 0.484 (0.358-3.740) uIU/mL Urine Opiates Screen Neg (Neg) Ur Barbiturates Screen Neg (Neg) Ur Amphetamines Screen Neg (Neg) U Benzodiazepines Scrn Neg (Neg) Urine Cocaine Screen Neg (Neg) U Cannabinoids Screen Pos H (Neg) Serum Alcohol Less than 3 (0-5) mg/dL
[2018-04-05] MEDS ORDERED: Aluminum/Magnesium/Simethacone Susp 30 ML UDC PO PRN (18:43)
[2018-04-06 10:20] LABS: Anion Gap 7 meq/L (5-15); Blood Urea Nitrogen 13 mg/dL (7-18); Calcium 9.1 mg/dL (8.5-10.1); Carbon Dioxide 25.9 meq/L (21.0-32.0); Chloride 107 meq/L (98-107); Cholesterol 115 mg/dL (120-200); Glomerular Filtration Rate Greater Than 89 mL/min (>89); Glucose,Random 118 mg/dL (74-106); Potassium 4.2 meq/L (3.5-5.1); Sodium 140 meq/L (136-145)
[2018-04-06 10:26] LABS: Chol/HDL Ratio 3.32 Ratio; HDL Cholesterol 34.6 mg/dL (40.0-60.0); LDL Cholesterol,Calculated 58 mg/dL (0-99); Triglycerides 114 mg/dL (42-150)
--- NOTE | 2018-04-06 13:05 | ECG ---
Date Performed: 04/06/2018 Time Performed: 12:31:35 PTAGE: 27 years EKG: Baseline artifact present Sinus rhythm NONSPECIFIC T-WAVE ABNORMALITY ABNORMAL ECG NO PREVIOUS TRACING DOCTOR: Héctor Carmichael Interpretating Date/Time 04/06/2018 13:04:45
--- NOTE | 2018-04-06 14:40 | P.HPPSY ---
Provisional Diagnosis Admission Date: April 05, 2018 18:52 Competence Certification of Person's Competence To Provide Express and Informed Consent I have personally examined Berry Anne, a person being served at [facility] on, April 06, 2018 1435. Express and informed consent means consent voluntarily given in writing, by a competent person, after sufficient explanation and disclosure of the subject matter involved to enable the person to make a knowing and willful decision without any element of force, fraud, deceit, duress, or other form of constraint or coercion. This person is 18 years of age or older, is not now known to be incompetent to consent to treatment with a guardian advocate, and does not have a health care surrogate or proxy currently making medical treatment decisions. I have found this person to be one of the following: [X] Competent to provide express and informed consent, as defined above, for voluntary admission to this facility and is competent to provide express and informed consent for treatment. He/she has the consistent capacity to make well reasoned, willful, and knowing decisions concerning his or her medical or mental health treatment. The person fully and consistently understands the purpose of the admission for examination/placement and is fully capable of personally exercising all rights assured under [place] [] Incompetent to provide express and informed consent to voluntary admission, and this is incompetent to provide express and informed consent to treatment. The person must be transferred to involuntary status and a petition for a guardian advocate filed with the Circuit Court. [] Refusing to provide express and informed consent to voluntary admission but is competent to provide express and informed consent for treatment. The person must be discharged or transferred to involuntary status. Form shall be completed within 24 hours of a person's arrival at the receiving facility and filed in the clinical record of each person: 1. Admitted on a voluntary basis 2. Permitted to provide express and informed consent to his/her own treatment 3. Allowed to transfer from involuntary to voluntary status 4. Prior to permitting a person to consent to his or her own treatment after having been previously found incompetent to consent to treatment. History of Present Illness Capacity: Has capacity Chief Complaint: SI, AH History of Present Illness: Patient is a 27-year-old male with a history of mood and psychotic disorders presenting to the psychiatric unit. Patient was a patient of [facility] before the local location close down. He has been out of his psychotropic medication for quite some time. Patient describes decompensating with auditory hallucinations and suicidal ideations. He does not endorse any specific stressors. This morning patient was anxious and received an ETO of Geodon and Ativan from the nurse practitioner. Patient describes hallucinations talking about his mother. They are not command in nature. He also has a delusion that his neighbor shot 1 of his cats last night. Feels watched, paranoid. Patient describes his mood as "anxious, hopeless." Time however denies active suicidal or homicidal ideation intent or plan. Past psych: Patient says these voices started years ago and he has been on various antipsychotics. Seroquel worked well for him, Risperdal caused weight gain. Denies a history of suicide attempts. Has had 1 other inpatient admission in [place] before "extreme camille." Past medical: Denies Past Famhx: Grandfather had bipolar Past Social: Patient has 1 daughter who lives with him and his girlfriend. He does not use alcohol. Smokes marijuana on occasion - Inpatient Certification I certify that the inpatient services were ordered in accordance with Medicare regulations governing the order. This includes certification that hospital inpatient services are reasonable and necessary and in the case of services not specified as inpatient-only under 42 CFR 419.22(n), that they are appropriately provided as inpatient services in accordance to with the 2-midnight benchmark under 43 CFR 412.3(e) I certify that inpatient psychiatric hospital services are medically necessary. Evaluation and treatment and/or diagnostic testing are expected to improve the patient's condition. The patient needs on a daily basis, active treatment furnished directly by or requiring the supervision of inpatient psychiatric facility personnel. Estimated Total Length of Stay (Days): 8 Plans for Post Hospital Care: Home Review of Systems All other systems reviewed negative except as stated in HPI [facility] - History History Provided By: Patient, Medical Record - Medical History Medical History: Medical History (Last Reviewed 04/06/18 @ 14:39 by Kleber Arrieta DO) Patient denies medical problems History of camille - Surgical History Surgical History: Surgical History (Last Reviewed 04/05/18 @ 11:08 by EDITA Holly) No history of previous surgery - Tobacco History Second Hand Smoke Exposure: Yes Tobacco Use In Past 30 Days: Yes Smoking Status: Current every day smoker Tobacco Type: Cigarettes - Alcohol History How Often Do You Have a Drink Containing Alcohol: Never - Substance Use History Substance History: Active Abuse - Substance Use Type Alcohol Type: marijuana Status: Active Route Used: By Mouth, Inhalation Reason for Use: Calm Down, Feels Good - Travel History Recent Travel in the [place] Within the Last 8 Weeks: No Recent Travel Out of the Country Within the Last 8 Weeks: No - Immunization History Tetanus Immunization: >5 Years Hx Influenza Vaccine This Season: No Medications and Allergies Active Medications: Active Medications Al Hydrox/Mg Hydrox/Simethicone (Mag-Al Plus Susp Liq) 30 ml PO Q6H PRN PRN Reason: DYSPEPSIA Al Hydroxide/Mg Hydroxide (Milk Of Magnesia Liq) 30 ml PO Q12H PRN PRN Reason: Mild Constipation Lorazepam (Ativan Inj) 1 mg IM Q6H PRN PRN Reason: MODERATE TO SEVERE ANXIETY Sennosides (Senokot) 17.2 mg PO Q12H PRN PRN Reason: Moderate Constipation Ziprasidone (Geodon Inj) 10 mg IM Q12H PRN PRN Reason: SEVERE AGITATION Allergies Allergy/AdvReac Type Severity Reaction Status Date / Time diphenhydramine Allergy Severe Psychosis Unverified 07/18/17 23:21 cimetidine Allergy Unknown Unverified 07/18/17 23:21 famotidine Allergy Unknown Unverified 07/18/17 23:21 ranitidine Allergy Unknown Unverified 07/18/17 23:21 ANTI-HISTAMINE AdvReac Unknown Uncoded 08/19/16 20:50 Home Medications Medication Instructions Recorded Confirmed Type No Known Home Medications 04/05/18 04/05/18 History Results - Labs CBC & Chem 7: 04/05/18 10:30 04/06/18 08:30 Labs: Laboratory Results - last 24 hr 04/06/18 08:30 Sodium 140 Potassium 4.2 Chloride 107 Carbon Dioxide 25.9 Anion Gap 7 BUN 13 Creatinine 0.98 Estimated GFR Greater than 89 Random Glucose 118 H Calcium 9.1 Triglycerides 114 Cholesterol 115 L LDL Cholesterol, Calc 58 HDL Cholesterol 34.6 L Cholesterol/HDL Ratio 3.32 Exam Vital signs: Vital Signs 04/05/18 18:54 04/05/18 22:22 04/06/18 06:00 Temperature 98 F 97.6 F Pulse Rate 87 95 H 75 Respiratory Rate 20 17 18 Blood Pressure 151/93 H 138/95 H 136/72 Pulse Oximetry 99 100 100 04/06/18 10:28 Temperature 98.4 F Pulse Rate 94 H Respiratory Rate 17 Blood Pressure 135/85 Pulse Oximetry 98 Intake & Output 04/05/18 04/06/18 04/06/18 18:59 06:59 18:59 Intake Total 720 / 720 Balance 720 / 720 Weight 68.039 kg 70.5 kg Intake: Oral 720 / 720 Other: Weight On Admission 70.5 kg Mental Status Examination Appearance: Disheveled Consciousness: Alert Orientation: x4 Motor Activity: Normal gait Speech: Unremarkable Language: Adequate Fund of Knowledge: Adequate Attention and Concentration: Adequate Memory: Unremarkable Mood: Sad Affect: Other (tearful) Thought Process & Associations: Intact, Logical, Goal directed Thought Content: Hallucinations, Preoccupations, Delusional Hallucination Type: Auditory Delusion Type: Paranoid Suicidal Ideation: No Suicidal Plan: No Suicidal Intention: No Homicidal Ideation: No Homicidal Plan: No Homicidal Intention: No Insight: Adequate Judgment: Adequate Assessment and Plan - Assessment (1) Depressive disorder Code(s): F32.9 - Major depressive disorder, single episode, unspecified Status : Acute - Plan Plan: Estimated LOS: [] days Given good efficacy of Seroquel we will start 25 mg p.o. twice daily and 50 mg p.o. nightly. He can start the twice daily dosing tomorrow given his sedation post Geodon injection. May sign voluntary Justification for Continued Inpatient Stay: Patient would decompensate in a less restrictive setting
[2018-04-06] MEDS: QUEtiapine 100 MG Tablet PO SCH (21:06)
--- NOTE | 2018-04-07 08:53 | P.PNPSY ---
Subjective Chief Complaint: SI, AH Remarks: Reviewed electronic record and discussed with nursing staff. Rounded with MUKESH Rivera. Patient is in bed in alot of distress. He states that his mind is racing and he has not slept. He endorses that he is hearing voices and that he is seeing things that are not there. States that he has manic episodes and has been diagnoses with Bipolar in the past. He states that he lost his job a year ago due to his inability to concentrate. He has a and child. He is not on SSI or SSDI. He is lying in bed with the covers over his head. Nursing states that he has alot of anxiety, poor appetite and struggling. Patient was seen at [facility]) in [place] as was stable on Geodon. He has not had medications in over 8 months since the facility in [facility] closed. He has difficulty with transportation to one of the other [facility] locations. Plan: Add Geodon 20 mg bid , continue the Seroquel 50 mg qhs and discontinue the seroquel 25 mg during the day. Add clonidine for anxiety ( allergic to antihistamines). Review of Systems All other systems reviewed negative except as stated in HPI Mental Status Examination Appearance: Disheveled Consciousness: Alert Orientation: x4 Motor Activity: Normal gait Speech: Unremarkable Language: Adequate Fund of Knowledge: Adequate Attention and Concentration: Adequate Memory: Unremarkable Mood: Sad Affect: Other (tearful) Thought Process & Associations: Intact, Logical, Goal directed Thought Content: Hallucinations, Preoccupations, Delusional Hallucination Type: Auditory Delusion Type: Paranoid Suicidal Ideation: No Suicidal Plan: No Suicidal Intention: No Homicidal Ideation: No Homicidal Plan: No Homicidal Intention: No Insight: Adequate Judgment: Adequate Assessment and Plan - Assessment (1) Schizoaffective disorder, bipolar type Code(s): F25.0 - Schizoaffective disorder, bipolar type Status: Acute - Plan Plan: Estimated LOS: [] days Plan: Start Geodon 20 mg bid with meals, continue Seroquel 50 mg qhs , discontinue seroquel 25 mg daily and add clonidine for anxiety ( allergic to antihistamines). Continue treatment plan. Justification for Continued Inpatient Stay: Moving patient to a less restrictive environment may result in his decompensation.
[2018-04-07] MEDS ORDERED: QUEtiapine 25 MG Tablet PO SCH (09:00)
[2018-04-07] MEDS: QUEtiapine 100 MG Tablet PO SCH (20:49)
[2018-04-08 05:54] VITALS: RESP 17
[2018-04-08] MEDS: OLANZapine 10 MG Tablet PO SCH ×2 (11:20→20:28)
--- NOTE | 2018-04-08 11:46 | P.PNPSY ---
Subjective Chief Complaint: SI, AH Remarks: Subjective: The patient complains of being "hypomanic". In actuality seems more hypomanic at present time does not appear to be internally preoccupied but has complained of voices in the past and that shadow of something in his peripheral vision. Patient has been on a number of different medications and has had little in the way of improvement on Geodon or Risperdal. There is an element of medication seeking on the part of the patient and perhaps it is nothing more than a high level of anxiety and what appears to be a borderline personality. The possibility of a schizoaffective disorder is possible if indeed there is an established period of camille and of a thought disorder. Nothing of this is been established at this point and so I would anticipate little in the way of improvement with medication changes. He reports that he is allergic to antihistamines which seems a bit far-fetched and possibly an effort to obtain medications other than Atarax or Benadryl. He seems content with clonidine 0.5 mg every 12 hours and this will be continued. Review of Systems Patient complains of anxiety this relieved with clonidine but insists that he is allergic to antihistamines. Mental Status Examination Appearance: Disheveled Consciousness: Alert Orientation: x4 Motor Activity: Normal gait Speech: Unremarkable Language: Adequate Fund of Knowledge: Adequate Attention and Concentration: Adequate Memory: Unremarkable Mood: Anxious Affect: Anxious Thought Process & Associations: Intact, Logical, Goal directed Thought Content: Hallucinations (Questionable. The shadows in the periphery of his eye), Preoccupations, Delusional Hallucination Type: Auditory Delusion Type: Paranoid Suicidal Ideation: No Suicidal Plan: No Suicidal Intention: No Homicidal Ideation: No Homicidal Plan: No Homicidal Intention: No Insight: Fair Judgment: Impulsive Assessment and Plan - Assessment (1) Depressive disorder Code(s): F32.9 - Major depressive disorder, single episode, unspecified Status : Acute - Plan Plan: Patient presents with says that the symptoms that have not responded well to medication and thus the question of more [place] issues must be considered. Treatment will proceed at this point with new set of treatment orders. Please see orders Justification for Continued Inpatient Stay: At present time the patient is at risk for decompensation at a lower level of care.
[2018-04-08] MEDS ORDERED: QUEtiapine 100 MG Tablet PO SCH (21:00)
[2018-04-09 05:45] VITALS: BP 119/69; PULSE 61; TEMP 98.1; O2SAT 97
[2018-04-09] MEDS: OLANZapine 10 MG Tablet PO SCH (09:17)
--- NOTE | 2018-04-09 11:16 | P.DSPSY ---
Psychiatry Discharge Summary Inpatient Psychiatric care?: Yes Advance Directives: No Mental Health Advance Directive: No Health Care Proxy: No - Admission Admission Date: April 05, 2018 18:52 - Admission Diagnosis (1) Schizoaffective disorder, bipolar type Code(s): F25.0 - Schizoaffective disorder, bipolar type Brief History: Patient is a 27-year-old male with a history of mood and psychotic disorders presenting to the psychiatric unit. Patient was a patient of [facility] before the local location close down. He has been out of his psychotropic medication for quite some time. Patient describes decompensating with auditory hallucinations and suicidal ideations. He does not endorse any specific stressors. This morning patient was anxious and received an ETO of Geodon and Ativan from the nurse practitioner. Patient describes hallucinations talking about his mother. They are not command in nature. He also has a delusion that his neighbor shot 1 of his cats last night. Feels watched, paranoid. Patient describes his mood as "anxious, hopeless." Time however denies active suicidal or homicidal ideation intent or plan. Past psych: Patient says these voices started years ago and he has been on various antipsychotics. Seroquel worked well for him, Risperdal caused weight gain. Denies a history of suicide attempts. Has had 1 other inpatient admission in [place] before "extreme [place]." Past medical: Denies Past Famhx: Grandfather had bipolar Past Social: Patient has 1 daughter who lives with him and his girlfriend. He does not use alcohol. Smokes marijuana on occasion Tobacco Use In Past 30 Days: Yes How Often Do You Have a Drink Containing Alcohol: Never Hospital Course: Course in the hospital: The patient has done very well with absolutely no signs of internal preoccupation or of evident voices talking to him and is distracting him. At this time the patient feels that the clonidine is helping considerably with his anxiety and he denies any further problems at this time. Patient did have medication changes that will be continued as an outpatient with improved sleep on 100 mg as opposed to 50 mg of Seroquel and with the addition of Zyprexa 10 mg twice daily. At the present time the patient has only back strain to be concerned with which apparently occurred in activities yesterday. He is asked seen for Jhonny or [place]. - Discharge Discharge Date: 04/09/18 - Discharge Diagnosis (1) Schizoaffective disorder, bipolar type Code(s): F25.0 - Schizoaffective disorder, bipolar type Status: Acute Discharge Disposition: Home - Discharge Instructions Discharge Diet: Regular Diet Activities You Can Perform: Regular- No Restrictions - Discharge Time > 30 minutes Mental Status Examination Appearance: Disheveled Consciousness: Alert Orientation: x4 Motor Activity: Normal gait Speech: Unremarkable Language: Adequate Fund of Knowledge: Adequate Attention and Concentration: Adequate Memory: Unremarkable Mood: Anxious Affect: Anxious Thought Process & Associations: Intact, Logical, Goal directed Thought Content: Hallucinations (Questionable. The shadows in the periphery of his eye), Preoccupations, Delusional Hallucination Type: Auditory Delusion Type: Paranoid Suicidal Ideation: No Suicidal Plan: No Suicidal Intention: No Homicidal Ideation: No Homicidal Plan: No Homicidal Intention: No Insight: Fair Judgment: Impulsive Discharge/Advance Care Plan - Results Vital Signs: Last Vital Signs Temp 98.1 F 04/09/18 05:44 Pulse 61 04/09/18 05:44 Resp 17 04/09/18 05:44 BP 119/69 04/09/18 05:44 Pulse Ox 97 04/09/18 05:44 Lab Results: Laboratory Results Hemoglobin A1c 5.0 % (4.3-6.0) 04/06/18 08:30 Triglycerides 114 mg/dL (42-150) 04/06/18 08:30 Cholesterol 115 mg/dL (120-200) L 04/06/18 08:30 LDL Cholesterol, Calc 58 mg/dL (0-99) 04/06/18 08:30 HDL Cholesterol 34.6 mg/dL (40.0-60.0) L 04/06/18 08:30 TSH 0.484 uIU/mL (0.358-3.740) 04/05/18 10:30 Summary of Procedures: None Pending Results: None - Medications Number of antipsychotic medications at discharge: 2 - Discharge Care Plan Goals to Promote Your Health: * To prevent worsening of your condition and complications * To maintain your health at the optimal level Directions to Meet Your Goals: Take your medications as prescribed Follow your dietary instruction Follow activity as directed Keep your appointments as scheduled Take your immunizations and boosters as scheduled If your symptoms worsen call your PCP, if no PCP go to Urgent Care Center or Emergency Room For 11/09 questions related to your inpatient stay or results of tests pending at discharge, please contact Dr. Baljinder Nunez MD at Smoking is Dangerous to Your Health. Avoid second hand smoking
== END 2018-04-09 13:45 | disposition home or self-care (01) | DRG 885 ==
LOC: NEPD 10:22 → NEDA 18:52 → H260 20:20
PROVIDERS: ADMIT Psychiatry & Neurology Child & Adolescent Psychiatry; ATTEND Psychiatry & Neurology Child & Adolescent Psychiatry
CPT/HCPCS: 80053; 80307; 83735; 84443; 85025; 90772; 90782; 90791; 93005; 96372; 99285; C9204; J2060; J3486